=== PATIENT | male | born 1985 | race Caucasian/White ===

== ENCOUNTER 2021-06-11 17:53 | Emergency (ER) | payer MEDICAID, SELFPAY ==
[2021-06-11 17:55] VITALS: BP 139/79; PULSE 110; RESP 16; TEMP 36.6; O2SAT 98
--- NOTE | 2021-06-11 18:15 | ED.GENADUL_ITS ---
Discharge Plan Disposition Patient Disposition: [facility] Condition: Stable Discharge Details Clinical Impression: Major depression, Suicidal ideation Primary Care Provider: Unknown,Unknown ED Provider: Teagan Torre Home Meds and New Rx's Prescriptions: No Action quetiapine 100 mg Tablet 100 mg PO HS 0RF temazepam 30 mg Capsule 30 mg PO HS 0RF nicotine (polacrilex) [Nicorette] 4 mg Gum 4 mg PO PRN PRN0RF zolpidem [Ambien] 10 mg Tablet 10 mg PO HS 0RF Vyvanse 70 mg Capsule 70 mg PO HS 0RF Discharge Data Discharge Date/Time-TO BE ENTERED AT DEPARTURE: 06/12/21 12:20 Medical Decision Making <Suzy Arias DO - Last Filed: 06/13/21 11:28> 36-year-old male with a history of longstanding anxiety and depression with worsening depression and thoughts of suicide for the past few weeks. He also admits to using street narcotic over the last 7 months, last use 10 hours ago. Heart rate tachycardic on arrival, within normal limits on my evaluation. Remainder vitals within normal limits. Patient is oriented x3 and appears clinically sober. Patient is voluntary. He states he feels he needs placement. Patient did state he feels that he would need placement within the next 48 hours. Discussed with patient that placement can be unpredictable and may be delayed pending availability. Screening labs ordered on arrival and unremarkable. Patient is medically cleared. Case discussed with mental health and they will evaluate at bedside. Case endorsed to Dr. Deal to continue to monitor overnight. Consider telepsych consult with Dr. Quezada tomorrow. Medical Records Medical records reviewed: Yes I reviewed the patient's medical records. Lab Data Lab results reviewed: Yes I reviewed the patient's lab results. Labs: Laboratory Tests Range/Units 06/11/21 06/11/21 06/11/21 18:15 18:15 18:25 WBC (4.4-10.8) 10^3/uL RBC (4.36-5.78) 10^6/uL Hgb (13.5-17.5) g/dL Hct (40.0-50.0) % MCV (80-95) fL MCH (27.0-33.0) pg MCHC (32.0-36.0) % RDW (11.8-14.1) % Plt Count (130-400) 10^3/uL MPV (8.0-11.0) fL Immature Gran % Neutrophils % Lymphocytes % Monocytes % Eosinophils % Basophils % Nucleated RBC % % Absolute Neutrophils (1.2-6.7) 10^3/uL Absolute Lymphocytes (1.2-3.4) 10^3/uL Absolute Monocytes (0.1-0.8) 10^3/uL Absolute Eosinophils (0.0-0.7) 10^3/uL Absolute Basophils (0.0-0.2) 10^3/uL Sodium (136-145) mmol/L 138 Potassium (3.5-5.1) mmol/L 3.8 Chloride (98-107) mmol/L 101 Carbon Dioxide (21.0-32.0) mmol/L 32.4 H Anion Gap (3-11) mmol/L 4.6 BUN (7-18) mg/dL 10 Creatinine (0.70-1.30) mg/dL 0.9 Estimated GFR/1.73 m2 (mL/min/1.73m2) >= 60.00 Glucose (74-106) mg/dL 118 H Calcium (8.5-10.1) mg/dL 8.9 Total Bilirubin (0.2-1.0) mg/dL 0.2 AST (15-37) U/L 22 ALT (16-63) U/L 54 Alkaline Phosphatase (46-116) U/L 72 Total Protein (6.4-8.2) g/dL 8.3 H Albumin (3.4-5.0) g/dL 4.4 TSH (0.36-3.74) uIU/mL 1.97 Urine Color (Yellow) Yellow Urine Clarity (Clear) Clear Urine pH (5-8) 5.5 Ur Specific [place] (1.005-1.025) 1.015 Urine Protein (Negative) mg/dL Negative Urine Ketones (Negative) mg/dL Negative Urine Blood (Negative) Trace-lysed H Urine Nitrite (Negative) Negative Urine Bilirubin (Negative) Negative Urine Urobilinogen (Up TO 0.2) EU/dL 0.2 Ur Leukocyte Esterase (Negative) Negative Urine RBC (0-2) HPF Negative Urine WBC (0-5) HPF Negative Ur Epithelial Cells (Negative) HPF Negative Urine Crystals (Negative) HPF Negative Urine Bacteria (Negative) HPF Negative Urine Mucus (Negative) Negative Ur Culture Indicated? No Urine Glucose (Negative) mg/dL Negative Salicylates (<2.8) mg/dL Urine Opiates Screen (Negative) Negative Urine Methadone Screen (Negative) Negative Acetaminophen (10-30) ug/mL Ur Barbiturates Screen (Negative) Negative Ur Tricyclics Screen (Negative) Negative Ur Amphetamines Screen (Negative) Negative U Benzodiazepines Scrn (Negative) Positive A Urine Cocaine Screen (Negative) Negative Ur THC Screen (Negative) Positive A Ethyl Alcohol (<10) mg/dL < 3.0 COVID-19 Source SARS-CoV-2 (PCR) (Negative) Range/Units 06/11/21 06/11/21 06/11/21 18:25 18:25 19:45 WBC (4.4-10.8) 10^3/uL 10.75 RBC (4.36-5.78) 10^6/uL 4.15 L Hgb (13.5-17.5) g/dL 12.7 L Hct (40.0-50.0) % 39.4 L MCV (80-95) fL 94.9 MCH (27.0-33.0) pg 30.6 MCHC (32.0-36.0) % 32.2 RDW (11.8-14.1) % 12.9 Plt Count (130-400) 10^3/uL 375 MPV (8.0-11.0) fL 9.4 Immature Gran % 0.3 Neutrophils % 73.5 Lymphocytes % 19.0 Monocytes % 5.2 Eosinophils % 1.6 Basophils % 0.4 Nucleated RBC % % 0 Absolute Neutrophils (1.2-6.7) 10^3/uL 7.91 H Absolute Lymphocytes (1.2-3.4) 10^3/uL 2.04 Absolute Monocytes (0.1-0.8) 10^3/uL 0.56 Absolute Eosinophils (0.0-0.7) 10^3/uL 0.17 Absolute Basophils (0.0-0.2) 10^3/uL 0.04 Sodium (136-145) mmol/L Potassium (3.5-5.1) mmol/L Chloride (98-107) mmol/L Carbon Dioxide (21.0-32.0) mmol/L Anion Gap (3-11) mmol/L BUN (7-18) mg/dL Creatinine (0.70-1.30) mg/dL Estimated GFR/1.73 m2 (mL/min/1.73m2) Glucose (74-106) mg/dL Calcium (8.5-10.1) mg/dL Total Bilirubin (0.2-1.0) mg/dL AST (15-37) U/L ALT (16-63) U/L Alkaline Phosphatase (46-116) U/L Total Protein (6.4-8.2) g/dL Albumin (3.4-5.0) g/dL TSH (0.36-3.74) uIU/mL Urine Color (Yellow) Urine Clarity (Clear) Urine pH (5-8) Ur Specific [place] (1.005-1.025) Urine Protein (Negative) mg/dL Urine Ketones (Negative) mg/dL Urine Blood (Negative) Urine Nitrite (Negative) Urine Bilirubin (Negative) Urine Urobilinogen (Up TO 0.2) EU/dL Ur Leukocyte Esterase (Negative) Urine RBC (0-2) HPF Urine WBC (0-5) HPF Ur Epithelial Cells (Negative) HPF Urine Crystals (Negative) HPF Urine Bacteria (Negative) HPF Urine Mucus (Negative) Ur Culture Indicated? Urine Glucose (Negative) mg/dL Salicylates (<2.8) mg/dL < 2.8 Urine Opiates Screen (Negative) Urine Methadone Screen (Negative) Acetaminophen (10-30) ug/mL < 2 Ur Barbiturates Screen (Negative) Ur Tricyclics Screen (Negative) Ur Amphetamines Screen (Negative) U Benzodiazepines Scrn (Negative) Urine Cocaine Screen (Negative) Ur THC Screen (Negative) Ethyl Alcohol (<10) mg/dL COVID-19 Source Nasal/Nares SARS-CoV-2 (PCR) (Negative) Negative <Teagan Torre MD - Last Filed: 06/15/21 12:05> Patient signed out to me at time of shift change by Dr. Deal with inpatient placement pending. Patient without complaint throughout the shift, states that he is glad to be going to [facility] for treatment. Doc to Doc discussion performed with Larry Prabhakar, who is the accepting provider. Patient transferred to [facility] retreat without further incident. HPI <Suzy Arias DO - Last Filed: 06/13/21 11:28> General Mode of arrival: ambulatory . Date/Time Provider Initiated Documentation: 06/11/21 18:02 . Limitations to Documentation: no limitations . Information obtained by: patient . HPI Narrative: Patient is a 36-year-old male with a history of longstanding anxiety and depression for the past several years worse over the past 3 months and especially since his best friend shot himself to last month. He states he has been thinking of harming himself with plans to shoot himself and he does have access to firearms. He denies any previous history of suicide attempt. He states he has been admitted to [facility] in the past for depression and substance abuse around 2015 and that it was helpful for his depression. He states he has not been admitted to any facility since then. Patient states he has been abusing narcotic street drugs for the past 7 months stating he is unsure if what he is taking is Percocet, fentanyl or heroin. He states he uses sometimes daily or sometimes every 4 days. He states his last use was most likely heroin today around 10 hours ago. He states he usually swallows or snorts pills. He denies any IV drug use. He states he has a previous history of alcohol abuse but not recently. He does smoke marijuana. He denies any thoughts of wanting to harm others. He denies any auditory or visual hallucinations. He states he has been having difficulty sleeping and has not been eating well. He states he did have Covid 2 months ago and is not vaccinated. He denies any recent exposure to Covid since then. He denies any fever, headache, chest pain, shortness of breath, abdominal pain, vomiting or diarrhea. Related Data Home Medications Medication Instructions Recorded Confirmed lisdexamfetamine 70 mg capsule 70 mg PO HS 06/11/21 06/11/21 (Vyvanse) nicotine (polacrilex) 4 mg gum 4 mg PO PRN PRN 06/11/21 06/11/21 (Nicorette) quetiapine 100 mg tablet 100 mg PO HS 06/11/21 06/11/21 temazepam 30 mg capsule 30 mg PO HS 06/11/21 06/11/21 zolpidem 10 mg tablet (Ambien) 10 mg PO HS 06/11/21 06/11/21 Allergies Allergy/AdvReac Type Severity Reaction Status Date / Time lactose AdvReac Unverified 06/11/21 18:43 General Stated Complaint: PsychEval SYLVIA: 2 Review of Systems <Suzy Arias DO - Last Filed: 06/13/21 11:28> All systems reviewed & are unremarkable except as noted in HPI and below Constitutional Constitutional: Reports as per HPI, Denies chills, Denies excessive sweating, Denies fatigue and Denies fever(s) Eyes Eyes: Denies blurry vision ENT Ears, Nose, Mouth, and Throat: Denies dizziness, Denies sore throat and Denies t hroat swelling Cardiovascular Cardiovascular: Denies chest pain and Denies dyspnea Respiratory Respiratory: Denies cough and Denies dyspnea Gastrointestinal Gastrointestinal: Denies abdominal pain, Denies diarrhea and Denies vomiting Genitourinary Genitourinary: Denies hematuria and Denies dysuria Musculoskeletal Musculoskeletal: Denies back pain and Denies numbness Integumentary/Breasts Skin/Breast: Denies lesions and Denies rash Neurologic Neurologic: Denies behavioral changes, Denies confusion, Denies dizziness, Denies localized weakness and Denies numbness Psychiatric Psychiatric: Reports abnormal sleep pattern, Reports anxiety, Denies behavioral changes, Reports change in appetite, Denies confusion, Reports depression, Reports difficulty concentrating, Reports hopelessness, Reports anhedonia and Reports suicidal ideation Endocrine Endocrine: Denies excessive sweating and Denies fatigue Hematologic/Lymphatic Hematologic/Lymphatic: Denies easy bruising and Denies lymphadenopathy Allergic/Immunologic Allergic/Immunologic: Denies throat swelling PFSH <Suzy Arias DO - Last Filed: 06/13/21 11:28> All Active Problems (Updated 06/11/21 @ 20:02 by Suzy Arias DO) Major depression (Chronic) Suicidal ideation (Acute) Social History Smoking/Tobacco Use Status: Current every day Smoking risk assessment performed?: Yes Alcohol Intake: never Drug use: Daily Substance use type: marijuana, heroin and opiates Do you feel safe at home: No Do you feel safe in your relationship?: Yes Exam <Suzy Arias DO - Last Filed: 06/13/21 11:28> Const General: cooperative and healthy appearing Orientation: alert, awake and oriented x3 [facility] Head: normal to inspection Ears: hearing grossly normal bilaterally and external ears normal General nose exam: external nose normal Face and sinus: normal facial exam Mouth: oral mucosae normal Teeth and gingiva: dentition normal Throat: posterior oropharynx normal Eyes General: appearance normal, both eyes and all related structures Eyelids: eyelids normal Pupils: PERRL EOM: EOM intact bilaterally Neck Neck: normal visual inspection Lymphatic: no lymphadenopathy noted Chest Chest: normal inspection of the chest Resp Effort & Inspection: normal respiratory effort and able to speak in complete sentences Auscultation: clear to auscultation bilaterally Cardio Rate: regular rate Rhythm: regular rhythm GI Inspection: normal to inspection Palpation: soft, not firm, no guarding, no hepatosplenomegaly, no masses and nontender Auscultation: normal bowel sounds Skin General skin exam: no rashes or lesions noted Neuro General: patient alert and patient awake Cognition: normal cognition Speech: speech normal Gait: normal gait Motor: muscle tone normal throughout Sensory Exam: no sensory deficits noted Extrem General: normal to inspection, full ROM and capillary refill normal Psych Appearance: grossly normal Mental Status: mental status grossly normal Speech and Movement: speech and movement normal Affect: normal affect Attitude: cooperative Thought Process: normal Thought Content: normal Insight: insight good Course <Suzy Airas, DO - Last Filed: 06/13/21 11:28> Vital Signs Vital signs: Vital Signs Temperature 97.9 F 06/11/21 17:55 Pulse 110 H 06/11/21 17:55 Respiratory Rate 16 06/11/21 17:55 Blood Pressure 139/79 06/11/21 17:55 Pulse Oximetry 98 06/11/21 17:55 Temperature 97.9 F 06/11/21 17:55 Temperature Source Temporal Artery Scan 06/11/21 17:55 Pulse 110 H 06/11/21 17:55 Respiratory Rate 16 06/11/21 17:55 Respiratory Effort Non-Labored 06/11/21 18:00 Blood Pressure 139/79 06/11/21 17:55 Blood Pressure Position Sitting 06/11/21 17:55 Pulse Oximetry 98 06/11/21 17:55 Oxygen Delivery Method Room Air 06/11/21 17:55 Oxygen Flow Rate 0 06/11/21 17:55 Pain Level 0 06/11/21 17:55 Sign Out <Suzy Arias DO - Last Filed: 06/13/21 11:28> Sign Out Data: Sign Out Comment: Depression and suicidal ideation. Also using narcotic street drugs. Voluntary. Medically cleared. Awaiting evaluation by mental health. Last updated by Suzy Arias DO at 06/11/21 20:08 Sign Out Comment: Rested comfortably through the night. Awaits disposition. Voluntary Last updated by Lc Deal MD at 06/12/21 06:16
[2021-06-11 18:23] LABS: Bilirubin Negative (Negative); Blood Trace-lysed (Negative); Clarity Clear (Clear); Glucose Negative (Negative); Ketones Negative (Negative); Leukocyte Esterase Negative (Negative); Nitrite Negative (Negative); Specific Gravity 1.015 (1.005-1.025); Urobilinogen 0.2 EU/dL (Up TO 0.2); pH 5.5 (5-8)
[2021-06-11 18:31] LABS: Abs Immature Grans 0.03 10^3/uL (0.0-0.06); Absolute Basophil Count 0.04 10^3/uL (0.0-0.2); Absolute Eosinophil Count 0.17 10^3/uL (0.0-0.7); Absolute Lymphocyte Count 2.04 10^3/uL (1.2-3.4); Absolute Monocyte Count 0.56 10^3/uL (0.1-0.8); Absolute Neutrophil Count 7.91 10^3/uL (1.2-6.7); Basophils % 0.4; Eosinophils % 1.6; HCT 39.4 % (40.0-50.0); HGB 12.7 g/dL (13.5-17.5); Immature Grans % 0.3; MCH 30.6 pg (27.0-33.0); MCHC 32.2 % (32.0-36.0); MCV 94.9 fL (80-95); MPV 9.4 fL (8.0-11.0); Monocytes % 5.2; Neutrophils % 73.5; Nucleated RBC 0 %; Platelet Count 375 10^3/uL (130-400); RBC 4.15 10^6/uL (4.36-5.78); RDW 12.9 % (11.8-14.1); RDW-SD 45.7 fL; WBC 10.75 10^3/uL (4.4-10.8)
[2021-06-11 18:37] LABS: *AMPHETAMINES SCREEN URINE Negative (Negative); *BARBITURATES SCREEN URINE Negative (Negative); *BENZODIAZEPINES SCREEN URINE Positive (Negative); Bacteria Negative HPF (Negative); C & S Indicated? No; Cannabinoids THC Positive (Negative); Cocaine Screen,Urine Negative (Negative); Crystals Negative HPF (Negative); Epithelial Cells Negative HPF (Negative); METHADONE URINE SCREEN Negative (Negative); Mucus Negative (Negative); OPIATES URINE SCREEN Negative (Negative); RBC Negative HPF (0-2); WBC Negative HPF (0-5)
[2021-06-11 18:40] LABS: Tricyclic Antidepressants Negative (Negative)
[2021-06-11 18:52] LABS: ALT 54 U/L (16-63); AST 22 U/L (15-37); Albumin 4.4 g/dL (3.4-5.0); Alkaline Phosphatase 72 U/L (46-116); Anion Gap 4.6 mmol/L (3-11); BUN 10 mg/dL (7-18); Bilirubin, Total 0.2 mg/dL (0.2-1.0); CO2 32.4 mmol/L (21.0-32.0); CREATININE 0.9 mg/dL (0.70-1.30); Calcium 8.9 mg/dL (8.5-10.1); Chloride 101 mmol/L (98-107); Glucose 118 mg/dL (74-106); Potassium 3.8 mmol/L (3.5-5.1); Sodium 138 mmol/L (136-145); TSH (W/Ref FT4) 1.97 uIU/mL (0.36-3.74); Total Protein 8.3 g/dL (6.4-8.2)
[2021-06-11 19:02] LABS: ETHANOL BLOOD < 3.0 mg/dL (<10)
[2021-06-11 19:08] LABS: Acetaminophen < 2 ug/mL (10-30); Salicylate < 2.8 mg/dL (<2.8)
[2021-06-11 20:34] LABS: COVID-19 PCR Negative (Negative)
[2021-06-11 20:36] LABS: Source Nasal/Nares
[2021-06-11] MEDS: QUEtiapine 100 MG TAB PO (20:57)
[2021-06-11] MEDS: Zolpidem 10 MG TAB PO (20:57)
[2021-06-11] MEDS: Temazepam 15 MG CAP 30 MG PO (20:57)
--- NOTE | 2021-06-11 21:11 | PDOC.MHCN ---
Date of service: 06/11/21 Time of Service: 21:11 Mental Health Crisis Note Presenting Issue How did you arrive at the ED and why did you come: Client arrived at [facility] ED with chief complaint of SI with plan to shoot himself. Client also states that he has been very depressed for the past several months. Precipitating Factors Client states that he is currently having SI with intent and plan if he is to be released from the ED. Disposition BEHAVIOR: Client is sitting up in hospital bed dressed in proper paper hospital attire when this radio script writer arrives via zoom. Client is cooperative and is showing good insight and judgment when talking with this radio script writer and wants to get te help that he needs. EYE CONTACT: Client makes minimal eye contact throughout the assessment, it appears that his eyes are closed most of the time. MOOD: Clients mood appears to be depressed and hopeless. AFFECT: Flat affect. APPETITE: Client states that his appetite has been poor, not eating full meals throughout the day. SLEEP(trouble falling/staying asleep: Client states that his sleep is horrible, sleeping for a couple of hours at a time and then being awake for 3-4 days. Plan Client will remain at [facility] pending admission to an inpatient facility. Outpatient options were explored,however client feels like he would benefit from inpatient treatment. All hospitals called and referrals will be sent to and [facility]. Signature Clinician's Name/Title: Joslyn Cleary [facility] Emergency Clinician.
[2021-06-12 05:48] VITALS: BP 98/59; PULSE 73; O2SAT 96
--- NOTE | 2021-06-12 08:30 | CMSP_ITS ---
- If Service Date Differs Date of service: 06/12/21 Time of Service: 08:30 Care Management Safety Plan Status: Voluntary - Reason for Wait Reason for Wait: Inpatient Admission VOLUNTARY FOR INPATIENT PSYCHIATRIC STABILIZATION. Patient is appropriate in all interactions since arriving at [facility]; Pt has demonstrated appropriate coping and communication skills, has articulated his or her needs and concerns and is fully engaged during staff interactions. Safety plan has been established with patient, and care team, to adhere to patient goals, identify restrictions based on behavioral status, address nutrition, and determine allowed personal belongings, tools for hygiene and personal care. Determine level of activity including ambulation, level of supervision, visitors, and determine privileges based on behaviors and level of engagement by pt. SAFETY PLAN: 1. Will remain on suicide precautions. In Paper Clothes 2. Will remain in room under direct supervision of one-on-one staff at all times provided by [employer], METHOD CONSULTANT, RED CROSS WORKER sewer and inspector. 3. May have paper cups, plates, finger foods as well as a cardboard spoon with which to eat meals. 4. Follow [facility] Management of the Admitted Behavioral Health Patient policy. 5. Shower permitted with escort at RN discretion. 6. No personal belongings. 7. Visitors-none at this time. 8. Activities: soft cart items, music tablet, television if available, and other activities at RN discretion. 9. Bathroom privileges with escort in the ED, available in room without limitation on M/S. 10. Phone: May use hospital cordless phone at RN discretion. 11. Due to VOLUNTARY status, if patient wishes to leave [facility], staff will contact [facility] Crisis Screener ([phone]) and On-Call 911 Operator ([phone]) as soon as possible. In the event of elopement, notify [facility] Police ([phone]). Patient is currently voluntarily at [facility] and seeking inpatient admission when a bed becomes available. [facility] Frontline Photography Coordinator will continue seeking placement. Please contact the Respiratory Therapy Technician 911 Operator ([phone]) and [facility] Photography Coordinator ([phone]) for any needed changes in the Safety Plan. Safety plan has been provided to interdepartmental care team.
[2021-06-12 10:00] VITALS: BP 104/73; PULSE 77; RESP 16; TEMP 36.4; O2SAT 97
[2021-06-12] MEDS: Nicotine 4 MG GUM CH ×2 (10:02→11:59)
--- NOTE | 2021-06-12 12:17 | CMPROGNOTE_ITS ---
- If Service Date Differs Date of service: 06/12/21 Time of Service: 12:17 Care Management Progress Note S/O: Mehrdad is sitting on the side of the bed when CM comes to meet with him. He is pleasant and easily engages in conversation. He reports [facility] staff have been really nice to him and expresses his appreciation for the care he's received in the ED. Mehrdad shares that he's been to [facility] in the past and knows what to expect. He is thankful to be getting the help that he needs. A: Mehrdad is a 36 year old male who presents in the ED for major depression and suicidal ideation. P: Mehrdad is accepted for a voluntary admission at [facility]. He will follow up with [facility] and his plan of care as directed upon discharge from the [facility]. Mehrdad is transported to [facility] by the [facility] Dept. - Status Status: Voluntary - Reason for Wait Reason for Wait: Inpatient Admission ([facility])
--- NOTE | 2021-06-12 14:25 | PDOC.MHCN ---
Date of service: 06/12/21 Time of Service: 10:20 Mental Health Crisis Note Presenting Issue How did you arrive at the ED and why did you come: Persistent thoughts of suicide. Precipitating Factors Client reports hes been having persistent thoughts of suicide for the past 3 months and has been self medicating with opioids. Client reports a 9 out of 10 for intent to act on thoughts if he were to leave hospital. Client reports plan to overdose or shoot himself with gun. Disposition BEHAVIOR: Appropriate, Cooperative, laying in hospital bed. EYE CONTACT: Consistent. MOOD: not bad but been better AFFECT: Normal APPETITE: Not good, reports eating little. SLEEP(trouble falling/staying asleep: Reports he slept well last night but in the past has had trouble with sleep. Plan He is voluntarily seeking in patient treatment. [place] [facility] [place] [facility] [place] [facility], and [facility]. Client will be reassessed daily. Signature Clinician's Name/Title: Kai Cole BA
== END 2021-06-12 12:20 | disposition short-term general hospital (02) ==
PROVIDERS: Physician Assistant; Registered Nurse Emergency; Emergency Provider Student in an Organized Health Care Education/Training Program
DX: F32.9 Major depressive disorder, single episode, unspecified (principal); R45.851 Suicidal ideations; F41.9 Anxiety disorder, unspecified; F11.10 Opioid abuse, uncomplicated; Z86.16 Personal history of COVID-19; Z28.3 Underimmunization status
CPT/HCPCS: 36415; 80053; 80307; 87635; 99285; 80320; 80329; 81003; 81015; 84443; 85025